=== PATIENT | male | born 1985 | race Caucasian/White ===

== ENCOUNTER 2018-10-13 21:05 | Emergency (ER) | payer OTHER ==
[2018-10-13 22:45] LABS: APPEARANCE,URINE SLIGHTLY-CLOUDY; BILIRUBIN,URINE NEGATIVE (NEGATIVE); COLOR,URINE YELLOW; GLUCOSE, URINE NEGATIVE (NEGATIVE); KETONES,URINE TRACE mg/dL (NEGATIVE); LEUKOCYTE ESTERASE,URINE NEGATIVE (NEGATIVE); NITRITE,URINE NEGATIVE (NEGATIVE); PROTEIN,URINE 30 mg/dL (NEGATIVE); URINE SPECIFIC GRAVITY 1.029; UROBILINOGEN,URINE NEGATIVE mg/dL (<2.0)
[2018-10-13] MEDS ORDERED: MORPHINE SULFATE 10 MG/ML INJ IV ONE (22:49)
[2018-10-13] MEDS ORDERED: ONDANSETRON HCL INJ/PF 4 MG/2 ML SDV IV ONE (22:49)
[2018-10-13] MEDS ORDERED: KETOROLAC TROMETHAMINE INJ/PF 30 MG/1 ML SDV IV ONE (22:49)
[2018-10-13] MEDS ORDERED: NORMAL SALINE 1000 ML 1,000 ML IV ONE (22:49)
--- NOTE | 2018-10-13 22:57 | ER Document Report ---
ED GI/ - General Chief Complaint: Low Back Pain Stated Complaint: LOWER BACK PAIN Time Seen by Provider: 10/13/18 22:46 Primary Care Provider: NATHAN BARRON [Primary Care Provider] - Follow up as needed Notes: Patient is a 33-year-old male that comes to the emergency department for chief complaint of sudden onset of very sharp right flank pain radiating around to the right abdomen, this started at about 6:30 PM tonight. He vomited in the waiting room. He denies fever/chills, injury, or history of the same. He denies hematuria or dysuria. He denies any surgeries other than vasectomy and he denies any other past medical history. He denies history of IV drug abuse. TRAVEL OUTSIDE OF THE [place] IN LAST 30 DAYS: No - Related Data Allergies/Adverse Reactions: No Known Allergies Allergy (Verified 10/13/18 23:23) Past Medical History - General Information source: Patient - Social History Smoking Status: Never Smoker Drug Abuse: None Lives with: Spouse/Significant other Family History: Reviewed & Not Pertinent Surgical Hx: Negative - Immunizations Immunizations up to date: Yes Hx Diphtheria, Pertussis, Tetanus Vaccination: Yes Review of Systems - Review of Systems Constitutional: No symptoms reported EENT: No symptoms reported Cardiovascular: No symptoms reported Respiratory: No symptoms reported Gastrointestinal: See HPI Genitourinary: See HPI Male Genitourinary: No symptoms reported Musculoskeletal: No symptoms reported Skin: No symptoms reported Hematologic/Lymphatic: No symptoms reported Neurological/Psychological: No symptoms reported Physical Exam - Vital signs Vitals: Temp Pulse Resp BP Pulse Ox 98.5 F 87 24 H 140/108 H 100 10/13/18 21:25 10/13/18 21:25 10/13/18 21:25 10/13/18 21:25 10/13/18 21:25 - Notes Notes: GENERAL: Alert, interacts well. Patient is very uncomfortable, restless, appears to be in a lot of pain HEAD: Normocephalic, atraumatic. EYES: Pupils equal, round, and reactive to light. Extraocular movements intact. ENT: Oral mucosa moist, tongue midline. Oropharynx unremarkable. Airway patent. LUNGS: Clear to auscultation bilaterally, no wheezes, rales, or rhonchi. No respiratory distress. HEART: Regular rate and rhythm. No murmur ABDOMEN: There is some mild generalized tenderness over the right side of the abdomen, nonspecific, no guarding or rigidity. Non-distended. Bowel sounds present in all 4 quadrants. GENITOURINARY: Deferred EXTREMITIES: Moves all 4 extremities spontaneously. No edema, normal radial and dorsalis pedis pulses bilaterally. No cyanosis. BACK: no cervical, thoracic, lumbar midline tenderness. No noted CVA tenderness. No saddle anesthesia, normal distal neurovascular exam. Moves all extremities in full range of motion. NEUROLOGICAL: Alert and oriented x3. Normal speech. Cranial nerves II through XII grossly intact. PSYCH: Slightly agitated SKIN: Warm, dry, normal turgor. No rashes or lesions noted. Course - Re-evaluation Re-evalutation: Patient's presentation is very suspicious for kidney stone. Because he has never had one before, I discussed pros and cons of imaging, patient is requesting imaging for full evaluation. CBC shows mild leukocytosis with elevation of neutrophils but no bandemia. Chemistry is unremarkable. Urinalysis shows hematuria with small amount of leukocytes, does not appear to be infected. Vital signs unremarkable except for mild hypertension. On reevaluation patient is significantly improved, asymptomatic. CT does show right-sided 2 mm stone at the UVJ with punctate nephrolithiasis on both sides. Also shows abnormality at L5-S1. Patient with no neurological deficits or reported lower back symptoms, pain is in the CVA area on the right although he has no overt CVA tenderness. He does not have a fever. Patient states [facility], requests [facility] of his [facility] for this. Discussed return precautions, discussed follow-up, discussed treatment. Patient and significant other state understanding and agreement. - Vital Signs Vital signs: Temp Pulse Resp BP Pulse Ox 97.5 F 66 18 113/63 96 10/14/18 00:21 10/14/18 00:21 10/14/18 00:21 10/14/18 00:21 10/14/18 00:21 - Laboratory Result Diagrams: 10/13/18 23:18 10/13/18 23:18 Laboratory results interpreted by me: 10/13/18 10/13/18 10/13/18 22:15 23:18 23:18 WBC 14.6 H Seg Neutrophils % 84.9 H Lymphocytes % 10.5 L Absolute Neutrophils 12.4 H Glucose 117 H Urine Protein 30 H Urine Ketones TRACE H Urine Blood MODERATE H Discharge - Discharge Clinical Impression: Right flank pain, Ureterolithiasis Abdominal pain Qualifiers: Abdominal location: lower abdomen, unspecified Qualified Code(s): R10.30 - Lower abdominal pain, unspecified Vomiting Qualifiers: Vomiting type: unspecified Vomiting Intractability: non-intractable Nausea presence: with nausea Qualified Code(s): R11.2 - Nausea with vomiting, unspecified Condition: Stable Disposition: HOME, SELF-CARE Additional Instructions: You are passing a 2 mm kidney stone on the right side. There are additional small stones in both kidneys that might pass in the future as well. I recommend avoiding oxalate substances in your diet, specifically tea and dark soda in your case. Drink plenty of fluids, take the pain medication as prescribed, take the nausea medication as prescribed. Your imaging also shows an L5-S1 disc protrusion, follow-up with your provider for additional management. Return if you worsen including fever, severe worsening pain, uncontrolled vomiting, or any other concerning symptoms. Prescriptions: Ibuprofen [Ibu] 800 mg PO TID PRN #30 tablet PRN Reason: Ondansetron [Zofran Odt 4 mg Tablet] 1 - 2 tab PO Q4H PRN #15 tab.rapdis PRN Reason: For Nausea/Vomiting Oxycodone HCl/Acetaminophen [Percocet 5-325 mg Tablet] 1 - 2 tab PO Q4H PRN #15 tablet PRN Reason: Forms: Return to Work Referrals: [facility] [Primary [facility] - Follow up as needed
[2018-10-13 23:28] LABS: ABSOLUTE BASOPHILS # (AUTO) 0.1 10^3/uL (0.0-0.2); ABSOLUTE EOSINOPHILS # (AUTO) 0.1 10^3/uL (0.0-0.6); ABSOLUTE LYMPHOCYTES (AUTO) 1.5 10^3/uL (0.5-4.7); ABSOLUTE MONOCYTES (AUTO) 0.5 10^3/uL (0.1-1.4); ABSOLUTE NEUT (AUTO) 12.4 10^3/uL (1.7-8.2); BASOPHILS % (AUTO) 0.7 % (0-2); EOSINOPHILS % (AUTO) 0.4 % (0-6); HEMATOCRIT 43.4 % (37.9-51.0); HEMOGLOBIN 15.1 g/dL (13.5-17.0); LYMPHOCYTES % (AUTO) 10.5 % (13-45); MEAN CORPUSCULAR HEMOGLOBIN 29.5 pg (27.0-33.4); MEAN CORPUSCULAR HGB CONC 34.9 g/dL (32.0-36.0); MEAN CORPUSCULAR VOLUME 85 fl (80-97); MONOCYTES % (AUTO) 3.5 % (3-13); PLATELET COUNT 267 10^3/uL (150-450); RED BLOOD COUNT 5.12 10^6/uL (4.35-5.55); RED CELL DISTRIBUTION WIDTH 13.3 % (11.5-14.0); SEGMENTED NEUTROPHILS % (AUTO) 84.9 % (42-78); TOTAL CELLS COUNTED % (AUTO) 100 %; WHITE BLOOD COUNT 14.6 10^3/uL (4.0-10.5)
[2018-10-13 23:44] LABS: ALANINE AMINOTRANSFERASE 34 U/L (21-72); ALKALINE PHOSPHATASE 57 U/L (38-126); ANION GAP 7 (5-19); ASPARTATE AMINO TRANSFERASE 32 U/L (17-59); BILIRUBIN,DIRECT 0.2 mg/dL (0.0-0.4); BILIRUBIN,TOTAL 0.6 mg/dL (0.2-1.3); BLOOD UREA NITROGEN 13 mg/dL (7-20); CALCIUM 9.7 mg/dL (8.4-10.2); CARBON DIOXIDE 26 mmol/L (22-30); CHLORIDE 105 mmol/L (98-107); GLUCOSE 117 mg/dL (75-110); POTASSIUM 4.5 mmol/L (3.6-5.0); SODIUM 138.4 mmol/L (137-145); TOTAL PROTEIN 7.9 g/dL (6.3-8.2)
--- NOTE | 2018-10-14 00:01 | RADIOLOGY REPORT (SQ) ---
EXAM DESCRIPTION: CT ABDOMEN PELVIS WITHOUT IV CONTRAST COMPLETED DATE/TME: 10/13/2018 22:50 CLINICAL HISTORY: 33 years Male, right flank/abd pain,vomiting Comparison: None. Technique: No contrast. Coronal and sagittal reformat. This exam was performed according to our departmental dose-optimization program, which includes automated exposure control, adjustment of the mA and/or kV according to patient size and/or use of iterative reconstruction technique.[facility]: Dose Right [facility]: CareDose [facility]: Dose Right [facility]: Teradose 4D [facility]: Urbasolar LIMITATIONS: None Findings: A 0.2 cm, rudolph sized right UVJ stone with mild right hydronephrosis-hydroureter. Additional punctate bilateral nephrolithiasis. Moderate wide right paracentral L5-S1 disc protrusion. No significant thecal sac compression. No ascites. No pneumoperitoneum. Normal appendix. No gross evidence of gallbladder inflammation, hepatobiliary obstruction, or portal vein defect. No bowel obstruction. No evidence of abdominal aortic aneurysm. Unenhanced lower thorax, abdominopelvic structures, and musculoskeleton appear otherwise grossly unremarkable. Impression: 1. A 0.2 cm, rudolph sized right UVJ stone with mild right hydronephrosis-hydroureter. Additional punctate bilateral nephrolithiasis. 2. Moderate wide right paracentral L5-S1 disc protrusion. No significant thecal sac compression.
[2018-10-14] MEDS ORDERED: ONDANSETRON ODT 4 MG TAB (6 TAB/ER DISP) PO PRN (00:12)
[2018-10-14] MEDS ORDERED: HYDROCODONE/ACETAMINOPHEN 5-325 MG (6 TAB/ER DISP) PO PRN (00:12)
[2018-10-14 00:30] VITALS: BP 113/63
== END 2018-10-14 00:34 | disposition home or self-care (01) ==
LOC: ER 21:05
DX: N20.1 Calculus of ureter (principal); R10.30 Lower abdominal pain, unspecified; M54.5 Low back pain; R11.2 Nausea with vomiting, unspecified
CPT/HCPCS: 99284; 96361; 96374; 96375; 36415; 85025; 80053; 81001; 74176; J1885; J2270; J2405; J7030